=== PATIENT | female | born 1980 | race Caucasian/White ===

== ENCOUNTER 2018-08-15 05:03 | Emergency (ER) | payer BC ==
[2018-08-15] MEDS ORDERED: Sodium Chloride 0.9% 1,000 ML IV ONE (05:12)
[2018-08-15] MEDS ORDERED: Ketorolac 30 MG/ML SDV IVPUSH ONE (05:12)
--- NOTE | 2018-08-15 05:15 | EDM.PDOC ---
ED HPI GENERAL MEDICAL PROBLEM - General Chief Complaint: Abdominal Pain Stated Complaint: SHARP STOMACH PAIN Time Seen by Provider: 08/15/18 05:11 - History of Present Illness INITIAL COMMENTS - FREE TEXT/NARRATIVE: HISTORY AND PHYSICAL: History of present illness: Patient is a 37-year-old white female gentleman Keenan left upper quadrant abdominal pain is described as sharp and intermittent that she's had some diarrhea she denies vomiting denies trauma denies fever chills or other concern. Review of systems: As per history of present illness and below otherwise all systems reviewed and negative. Past medical history: As per history of present illness and as reviewed below otherwise noncontributory. Surgical history: As per history of present illness and as reviewed below otherwise noncontributory. Social history: No reported history of drug or alcohol abuse. Family history: As per history of present illness and as reviewed below otherwise noncontributory. Physical exam: HEENT: Atraumatic, normocephalic, pupils reactive, negative for conjunctival pallor or scleral icterus, mucous membranes moist, throat clear, neck supple, nontender, trachea midline. Lungs: Clear to auscultation, breath sounds equal bilaterally, chest nontender. Heart: S1S2, regular, negative for clicks, rubs, or JVD. Abdomen: Soft, nondistended, no localized tenderness. Negative for masses or hepatosplenomegaly. Negative for costovertebral tenderness. Pelvis: Stable nontender. Genitourinary: Deferred. Rectal: Deferred. Extremities: Atraumatic, negative for cords or calf pain. Neurovascular unremarkable. Neuro: Awake, alert, oriented. Cranial nerves II through XII unremarkable. Cerebellum unremarkable. Motor and sensory unremarkable throughout. Exam nonfocal. Diagnostics: CBC CMP lipase UA hCG acute abdominal series with chest x-ray stool for C&S O&P and C. difficile Therapeutics: Saline 1 L bolus Toradol 30 mg IV Impression: #1 abdominal pain #2 diarrhea Definitive disposition and diagnosis as appropriate pending reevaluation and review of above. - Related Data Allergies Allergy/AdvReac Type Severity Reaction Status Date / Time No Known Allergies Allergy Verified 08/15/18 05:14 Home Meds: Home Meds LORazepam 0.5 mg PO ASDIRECTED 08/15/18 [History] Temazepam [Restoril] 30 mg PO BEDTIME PRN 08/15/18 [History] Venlafaxine HCl [Venlafaxine ER] 225 mg PO DAILY 08/15/18 [History] Venlafaxine [Effexor XR] 37.5 mg PO ASDIRECTED 08/15/18 [History] Past Medical History - Past Health History Medical/Surgical History: Denies Medical/Surgical History Social & Family History - Family History Family Medical History: Noncontributory ED ROS GENERAL - Review of Systems Review Of Systems: ROS reveals no pertinent complaints other than HPI. ED EXAM, GENERAL - Physical Exam Exam: See Below (See dictation) Course - Vital Signs Last Recorded V/S: Last Vital Signs Temp 36.6 C 08/15/18 05:12 Pulse 102 H 08/15/18 05:12 Resp 18 08/15/18 05:12 BP 140/91 H 08/15/18 05:12 Pulse Ox 97 08/15/18 05:12 - Orders/Labs/Meds Orders: Active Orders 24 hr Category Date Time Status Abdomen Series w Chest 1V [CR] Stat Exams 08/15/18 05:12 Taken CDIFF TOX A+B [OP] Stat Lab 08/15/18 05:13 Ordered CULTURE STOOL + CAMPY+SHIGATOX [RM] Stat Lab 08/15/18 05:13 Ordered Labs: Laboratory Tests 08/15/18 08/15/18 08/15/18 Range/Units 05:23 05:23 05:23 WBC 9.91 (4.0-11.0) K/uL RBC 4.92 (4.30-5.90) M/uL Hgb 14.5 (12.0-16.0) g/dL Hct 42.5 (36.0-46.0) % MCV 86.4 (80.0-98.0) fL MCH 29.5 (27.0-32.0) pg MCHC 34.1 (31.0-37.0) g/dL RDW Std Deviation 42.0 (28.0-62.0) fl RDW Coeff of Luba 13 (11.0-15.0) % Plt Count 190 (150-400) K/uL MPV 9.50 (7.40-12.00) fL Neut % (Auto) 69.8 (48.0-80.0) % Lymph % (Auto) 18.6 (16.0-40.0) % Potter % (Auto) 8.7 (0.0-15.0) % Eos % (Auto) 2.8 (0.0-7.0) % Baso % (Auto) 0.1 (0.0-1.5) % Neut # (Auto) 6.9 H (1.4-5.7) K/uL Lymph # (Auto) 1.8 (0.6-2.4) K/uL Potter # (Auto) 0.9 H (0.0-0.8) K/uL Eos # (Auto) 0.3 (0.0-0.7) K/uL Baso # (Auto) 0.0 (0.0-0.1) K/uL Nucleated RBC % 0.0 /100WBC Nucleated RBCs # 0 K/uL Sodium 141 (136-145) mmol/L Potassium 4.1 (3.5-5.1) mmol/L Chloride 105 (98-107) mmol/L Carbon Dioxide 25.6 (21.0-32.0) mmol/L BUN 8 (7.0-18.0) mg/dL Creatinine 0.9 (0.6-1.0) mg/dL Est Cr Clr Drug Dosing 76.26 mL/min Estimated GFR (MDRD) > 60.0 ml/min Glucose 108 H (74-106) mg/dL Calcium 8.7 (8.5-10.1) mg/dL Total Bilirubin 0.7 (0.2-1.0) mg/dL AST 30 (15-37) IU/L ALT 48 (14-63) IU/L Alkaline Phosphatase 110 (46-116) U/L Total Protein 7.3 (6.4-8.2) g/dL Albumin 3.6 (3.4-5.0) g/dL Globulin 3.7 (2.6-4.0) g/dL Albumin/Globulin Ratio 1.0 (0.9-1.6) Lipase 144 (73-393) U/L HCG, Qual NEGATIVE (NEG) Urine Color Urine Appearance Urine pH (5.0-8.0) Ur Specific Madill (1.001-1.035) Urine Protein (NEGATIVE) mg/dL Urine Glucose (UA) (NEGATIVE) mg/dL Urine Ketones (NEGATIVE) mg/dL Urine Occult Blood (NEGATIVE) Urine Nitrite (NEGATIVE) Urine Bilirubin (NEGATIVE) Urine Urobilinogen (<2.0) EU/dL Ur Leukocyte Esterase (NEGATIVE) Urine RBC (0-2/HPF) Urine WBC (0-5/HPF) Ur Epithelial Cells (NONE-FEW) Urine Bacteria (NEGATIVE) 08/15/18 Range/Units 05:30 WBC (4.0-11.0) K/uL RBC (4.30-5.90) M/uL Hgb (12.0-16.0) g/dL Hct (36.0-46.0) % MCV (80.0-98.0) fL MCH (27.0-32.0) pg MCHC (31.0-37.0) g/dL RDW Std Deviation (28.0-62.0) fl RDW Coeff of Luba (11.0-15.0) % Plt Count (150-400) K/uL MPV (7.40-12.00) fL Neut % (Auto) (48.0-80.0) % Lymph % (Auto) (16.0-40.0) % Potter % (Auto) (0.0-15.0) % Eos % (Auto) (0.0-7.0) % Baso % (Auto) (0.0-1.5) % Neut # (Auto) (1.4-5.7) K/uL Lymph # (Auto) (0.6-2.4) K/uL Potter # (Auto) (0.0-0.8) K/uL Eos # (Auto) (0.0-0.7) K/uL Baso # (Auto) (0.0-0.1) K/uL Nucleated RBC % /100WBC Nucleated RBCs # K/uL Sodium (136-145) mmol/L Potassium (3.5-5.1) mmol/L Chloride (98-107) mmol/L Carbon Dioxide (21.0-32.0) mmol/L BUN (7.0-18.0) mg/dL Creatinine (0.6-1.0) mg/dL Est Cr Clr Drug Dosing mL/min Estimated GFR (MDRD) ml/min Glucose (74-106) mg/dL Calcium (8.5-10.1) mg/dL Total Bilirubin (0.2-1.0) mg/dL AST (15-37) IU/L ALT (14-63) IU/L Alkaline Phosphatase (46-116) U/L Total Protein (6.4-8.2) g/dL Albumin (3.4-5.0) g/dL Globulin (2.6-4.0) g/dL Albumin/Globulin Ratio (0.9-1.6) Lipase (73-393) U/L HCG, Qual (NEG) Urine Color YELLOW Urine Appearance HAZY Urine pH 6.0 (5.0-8.0) Ur Specific Madill 1.015 (1.001-1.035) Urine Protein NEGATIVE (NEGATIVE) mg/dL Urine Glucose (UA) NEGATIVE (NEGATIVE) mg/dL Urine Ketones NEGATIVE (NEGATIVE) mg/dL Urine Occult Blood SMALL H (NEGATIVE) Urine Nitrite NEGATIVE (NEGATIVE) Urine Bilirubin NEGATIVE (NEGATIVE) Urine Urobilinogen 0.2 (<2.0) EU/dL Ur Leukocyte Esterase NEGATIVE (NEGATIVE) Urine RBC 1-2 (0-2/HPF) Urine WBC 0-2 (0-5/HPF) Ur Epithelial Cells FEW (NONE-FEW) Urine Bacteria FEW (NEGATIVE) Meds: Medications Discontinued Medications Generic Name Dose Route Start Last Admin Trade Name Freq PRN Reason Stop Dose Admin Sodium Chloride 1,000 mls @ 999 mls/hr 08/15/18 05:12 08/15/18 05:40 Normal Saline IV 08/15/18 06:12 999 mls/hr STAT ONE Administration Ketorolac Tromethamine 30 mg 08/15/18 05:12 08/15/18 05:40 Toradol IVPUSH 08/15/18 05:13 30 mg ONETIME ONE Administration Departure - Departure Time of Disposition: 06:19 Disposition: Home, Self-Care 01 Condition: Good Clinical Impression: Abdominal pain, Diarrhea - Discharge Information Referrals: PCP,None [Primary Care Provider] - Forms: ED Department Discharge Additional Instructions: The following information is given to patients seen in the emergency department who are being discharged to home. This information is to outline your options for follow-up care. We provide all patients seen in our emergency department with a follow-up referral. The need for follow-up, as well as the timing and circumstances, are variable depending upon the specifics of your emergency department visit. If you don't have a primary care physician on staff, we will provide you with a referral. We always advise you to contact your personal physician following an emergency department visit to inform them of the circumstance of the visit and for follow-up with them and/or the need for any referrals to a consulting specialist. The emergency department will also refer you to a specialist when appropriate. This referral assures that you have the opportunity for followup care with a specialist. All of these measure are taken in an effort to provide you with optimal care, which includes your followup. Under all circumstances we always encourage you to contact your private physician who remains a resource for coordinating your care. When calling for followup care, please make the office aware that this follow-up is from your recent emergency room visit. If for any reason you are refused follow-up, please contact the [facility] emergency department at and asked to speak to the emergency department charge nurse. Continue current medications follow up primary medical doctor as needed as discussed and return as needed as discussed push clear liquids avoid dairy 72 hours - My Orders Last 24 Hours: My Active Orders 08/15/18 05:12 Abdomen Series w Chest 1V [CR] Stat 08/15/18 05:13 CDIFF TOX A+B [OP] Stat CULTURE STOOL + CAMPY+SHIGATOX [RM] Stat - Assessment/Plan Last 24 Hours: My Active Orders 08/15/18 05:12 Abdomen Series w Chest 1V [CR] Stat 08/15/18 05:13 CDIFF TOX A+B [OP] Stat CULTURE STOOL + CAMPY+SHIGATOX [RM] Stat
[2018-08-15 06:01] LABS: CHLORIDE,CL 105 mmol/L (98-107); SODIUM,NA 141 mmol/L (136-145)
[2018-08-15 07:04] VITALS: BP 117/64
--- NOTE | 2018-08-16 12:33 | CR ---
EXAM DATE: 08/15/18 PATIENT'S AGE: 37 Patient: JUVENCIO CRUZ Facility: [facility] Site . Site : [id number] Study: XRay-Chest/Abd-08/15/2018 6:17:44 AM Ordering Physician: Echo Felipe Final Report: INDICATION: Abdominal pain TECHNIQUE: Chest and Abdominal radiograph 4 views COMPARISON: None FINDINGS: Severe degradation of image quality noted due to body habitus. CHEST: Mediastinum: The mediastinum is normal in appearance. The heart silhouette is normal in size and morphology. Lung: Both lungs are unremarkable in appearance. No sign of pleural effusion seen. No pneumothorax is identified. ABDOMEN: Bowel: The bowel gas pattern is normal without evidence of bowel obstruction. Soft tissue: No evidence of pneumoperitoneum present. No suspicious calcifications noted. Bone: Unremarkable for age. IMPRESSION: 1. Unremarkable appearance of the chest and abdomen. 2. Severe degradation of image quality noted due to body habitus. Dictated by: Jabari Forrest MD @ 08/15/2018 06:23:51 Signed by: Jabari Forrest MD @08/15/2018 6:23:51 AM (Electronic Signature) Report Signed by Proxy. MEDISYS HEALTH NETWORKIrvin
== END 2018-08-15 07:15 | disposition home or self-care (01) ==
LOC: MW.ED 05:03
DX: R19.7 Diarrhea, unspecified (principal); R10.12 Left upper quadrant pain; Z79.899 Other long term (current) drug therapy
CPT/HCPCS: 36415; 74022; 80053; 81001; 83690; 84703; 85025; 96361; 96374; 99284; J1885; J7040

== ENCOUNTER 2021-03-12 12:10 | Day surgery (SDC) | payer BC ==
--- NOTE | 2021-03-12 11:15 | PCM.PREANE ---
Preanesthetic Assessment - Anesthesia/Transfusion/Family Hx Anesthesia History: Prior Anesthesia Without Reaction Transfusion History: No Prior Transfusion(s) - Review of Systems General: No Symptoms Pulmonary: No Symptoms Cardiovascular: No Symptoms Gastrointestinal: No Symptoms Neurological: No Symptoms Other: Reports: None - Physical Assessment NPO Status Date: 03/12/21 NPO Status Time: 00:00 Height: 5 ft 5 in Weight: 256 lb Mental Status: Alert & Oriented x3 Airway Class: Mallampati = 2 Dentition: Reports: Normal Dentition Thyro-Mental Finger Breadths: 3 Mouth Opening Finger Breadths: 3 ROM/Head Extension: Full Lungs: Clear to Auscultation, Normal Respiratory Effort Cardiovascular: Regular Rate, Regular Rhythm - Allergies Allergies/Adverse Reactions: Allergies Allergy/AdvReac Type Severity Reaction Status Date / Time No Known Allergies Allergy Verified 03/06/21 08:13 - Acknowledgements Anesthesia Type Planned: General Anesthesia Pt an Appropriate Candidate for the Planned Anesthesia: Yes Alternatives and Risks of Anesthesia Discussed w Pt/Guardian: Yes Pt/Guardian Understands and Agrees with Anesthesia Plan: Yes PreAnesthesia Questionnaire - Past Health History Medical/Surgical History: Denies Medical/Surgical History HEENT History: Reports: None Cardiovascular History: Reports: None Respiratory History: Reports: None Gastrointestinal History: Reports: Cholelithiasis, Chronic Diarrhea, GERD, Helicobacter Pylori Other Gastrointestinal History: intermittent RUQ pain Genitourinary History: Reports: None JACK PRIZER History: Reports: , Spontaneous Musculoskeletal History: Reports: Fracture Other Musculoskeletal History: fx big toe Neurological History: Reports: Headaches, Chronic Psychiatric History: Reports: Anxiety, Depression Endocrine/Metabolic History: Reports: Obesity/BMI 30+ Hematologic History: Reports: None Immunologic History: Reports: None Oncologic (Cancer) History: Reports: None Dermatologic History: Reports: None - Infectious Disease History Infectious Disease History: Reports: None - Past Surgical History Head Surgeries/Procedures: Reports: None HEENT Surgical History: Reports: Oral Surgery Cardiovascular Surgical History: Reports: None Respiratory Surgical History: Reports: None GI Surgical History: Reports: None Female Surgical History: Reports: None Endocrine Surgical History: Reports: None Neurological Surgical History: Reports: None Musculoskeletal Surgical History: Reports: None Oncologic Surgical History: Reports: None Dermatological Surgical History: Reports: None - SUBSTANCE USE Tobacco Use Status *Q: Current Every Day Tobacco User Tobacco Use Within Last Twelve Months: Cigarettes - HOME MEDS Home Medications: Home Meds LORazepam 1 mg PO ASDIRECTED PRN 08/15/18 [History] Temazepam [Restoril] 30 mg PO BEDTIME PRN 08/15/18 [History] Amoxicillin 1,000 mg PO BID 03/06/21 [History] Clarithromycin 500 mg PO BID 03/06/21 [History] Methylmethyl-Guard Plus 1 tab PO DAILY 03/06/21 [History] Multivitamin/Iron/Folic Acid [Centrum Adults Tablet] 1 tab PO DAILY 03/06/21 [History] Omeprazole 40 mg PO BID 03/06/21 [History] Sertraline HCl 100 mg PO BID 03/06/21 [History] buPROPion HCL [Bupropion Xl] 300 mg PO DAILY 03/06/21 [History] hydrOXYzine HCL [Hydroxyzine HCl] 3 tab PO BEDTIME 03/06/21 [History] - CURRENT (IN HOUSE) MEDS Current Meds: Current Medications Lactated Ringer's (Ringers, Lactated) 1,000 mls @ 125 mls/hr IV ASDIRECTED BRIAN Sodium Chloride (Sodium Chloride 0.9% 10 Ml Syringe) 10 ml FLUSH ASDIRECTED PRN PRN Reason: Keep Vein Open Sodium Chloride (Sodium Chloride 0.9% 2.5 Ml Syringe) 2.5 ml FLUSH ASDIRECTED PRN PRN Reason: Keep Vein Open Sodium Chloride (Sodium Chloride 0.9% 10 Ml Syringe) 10 ml FLUSH ASDIRECTED PRN PRN Reason: Keep Vein Open Sodium Chloride (Sodium Chloride 0.9% 2.5 Ml Syringe) 2.5 ml FLUSH ASDIRECTED PRN PRN Reason: Keep Vein Open Sodium Chloride (Sodium Chloride 0.9% 10 Ml Sdv) 10 ml IV ASDIRECTED PRN PRN Reason: IV Use
[~2021-03-12 12:10] MED LIST: Lactated Ringers 1,000 ML IV SCH; Sodium Chloride 0.9% 10 ML SDV IV PRN; Sodium Chloride 0.9% 10 ML Syringe FLUSH PRN; Sodium Chloride 0.9% 2.5 ML Syringe FLUSH PRN
[2021-03-12] MEDS ORDERED: Ondansetron 4 MG/2 ML SDV ONE (13:13)
[2021-03-12] MEDS ORDERED: fentaNYL 100 MCG/2 ML SDV ONE (13:13)
--- NOTE | 2021-03-12 15:12 | PCM48HPAN ---
Post Anesthesia Note - EVALUATION WITHIN 48HRS OF ANESTHETIC Vital Signs in Normal Range: Yes Patient Participated in Evaluation: Yes Respiratory Function Stable: Yes Airway Patent: Yes Cardiovascular Function Stable: Yes Hydration Status Stable: Yes Pain Control Satisfactory: Yes Nausea and Vomiting Control Satisfactory: Yes Mental Status Recovered: Yes Vital Signs: Last Vital Signs Temp 97.2 F 03/12/21 12:13 Pulse 88 03/12/21 12:13 Resp 16 03/12/21 12:13 BP 144/89 H 03/12/21 12:13 Pulse Ox 96 03/12/21 12:13
--- NOTE | 2021-03-12 15:12 | PCM.POSTAN ---
POST ANESTHESIA ASSESSMENT - MENTAL STATUS Mental Status: Somnolent - VITAL SIGNS Vital Signs: Last Vital Signs Temp 97.2 F 03/12/21 12:13 Pulse 88 03/12/21 12:13 Resp 16 03/12/21 12:13 BP 144/89 H 03/12/21 12:13 Pulse Ox 96 03/12/21 12:13 - RESPIRATORY Respiratory Status: Respiratory Rate WNL, Airway Patent, O2 Saturation Stable - CARDIOVASCULAR CV Status: Pulse Rate WNL, Blood Pressure Stable - GASTROINTESTINAL GI Status: No Symptoms - POST OP HYDRATION Hydration Status: Adequate & Stable
[2021-03-12 15:37] VITALS: BP 132/76; PULSE 63
--- NOTE | 2021-03-12 18:22 | PCM.OPNOTE ---
- General Post-Op/Procedure Note Date of Surgery/Procedure: 03/12/21 Operative Procedure(s): Diagnostic EGD and colonoscopy Findings: anal warts, rectal polyps x 3, normal appearing egd Pre Op Diagnosis: H. pylori infection, abdominal pain, change in bowel habits Post-Op Diagnosis: anal warts, rectal polyps x 3, Anesthesia Technique: MAC Primary Surgeon: Nuvia Mendoza Condition: Good Free Text/Narrative:: Intake & Output 03/12/21 03/12/21 03/12/21 06:59 14:59 22:59 Intake Total 1500 Balance 1500
--- NOTE | 2021-03-12 23:03 | OR ---
SURGEON: NUVIA MENDOZA MD DATE OF PROCEDURE: 03/12/2021 PREOPERATIVE DIAGNOSES: Helicobacter pylori infection, abdominal pain, change in bowel habits. POSTOPERATIVE DIAGNOSES: 1. Helicobacter pylori infection. 2. Rectal polyps x3. 3. Anal warts. PROCEDURE PERFORMED: Diagnostic esophagogastroduodenoscopy and colonoscopy. PRIMARY SURGEON: Nuvia Mendoza MD ANESTHESIA: MAC. INSTRUMENT USED: Olympus endoscope and colonoscope. EXTENT OF EXAM: To the second portion of duodenum, to the cecum. PREPARATION: Good. LIMITATIONS: None. INDICATIONS FOR EXAMINATION: The patient is a 40-year-old female who came to my office with a variety of abdominal complaints. She was having abdominal pain as well as a change in her bowel habits. She was diagnosed with H pylori and started on a regimen. The patient was consented for diagnostic EGD and colonoscopy. I explained the procedure, expected perioperative course, and the risks. She verbalized understanding and wishes to proceed. PROCEDURE IN DETAIL: The patient was brought in to the endoscopy suite and placed in a left lateral decubitus position. A time-out was completed verifying the patient's name, age, date of , allergies, and procedure to be performed. A bite block was placed in the patient's mouth. Monitored anesthesia care was induced and continuous oxygen was provided via face mask throughout the procedure. After adequate sedation was achieved, a well-lubricated endoscope was placed in the patient's mouth and advanced under direct visualization to the level of the second portion of duodenum. This appeared normal and a photograph was taken. The scope was then fully withdrawn while examining the color, texture, anatomy, and integrity of the mucosa of the upper GI tract. The duodenum appeared normal. The scope was brought into the stomach and a photograph was taken of the pylorus and GE junction. These appeared anatomically normal. There was no evidence of gross inflammation or ulceration. Biopsies were taken of the gastric antrum, body, and fundus and sent for histologic review and H pylori testing. The scope was then brought into the distal esophagus and a photograph was taken of the GE junction. The Z-line appeared normal. Biopsies were taken of the esophagus and sent 1 cm above the Z-line and sent to Pathology. The remainder of the esophagus appeared normal. The scope was removed and this portion of the procedure terminated. A digital rectal exam was performed. The patient was noted to have multiple anal warts. A photograph of this was taken. The digital rectal exam itself appeared normal. A well-lubricated colonoscope was inserted into the rectum and advanced under direct visualization to the level of the cecum. The cecum was identified by both visual and anatomic landmarks. A photograph was taken of the cecal cap, however, I was unable to retroflex the scope within the cecum. The scope was then fully withdrawn while examining the color, texture, anatomy, and integrity of the mucosa from the cecum to the anal canal. The patient's colon appeared normal, however, when I brought the scope into the rectum, there were three sessile polyps. Rectal polyp #1 was removed using a hot snare. Rectal polyp #2 and #3 were removed in piecemeal fashion using a cold biopsy forceps. The scope was retroflexed to allow visualization of the anal canal opening. This appeared normal and a photograph was taken. The scope was then straightened out and fully withdrawn. The cecum to anus time was 20 minutes. The patient tolerated the procedure well and was transferred to the PACU in stable condition. ENDOSCOPIC DIAGNOSES: 1. Helicobacter pylori infection. 2. Rectal polyps x3. 3. Anal warts. RECOMMENDATION: Follow up in clinic in two weeks. BALJINDER GAITAN /[id number]
== END 2021-03-12 15:52 | disposition home or self-care (01) ==
LOC: MW.SDS 12:10
PROVIDERS: ATTEND Surgery
DX: K62.1 Rectal polyp (principal); A63.0 Anogenital (venereal) warts; K21.00 Gastro-esophageal reflux disease with esophagitis, without bleeding; F41.9 Anxiety disorder, unspecified; F32.A Depression, unspecified; F17.210 Nicotine dependence, cigarettes, uncomplicated; K80.20 Calculus of gallbladder without cholecystitis without obstruction; E66.9 Obesity, unspecified; Z79.899 Other long term (current) drug therapy; Z98.890 Other specified postprocedural states; Z68.41 Body mass index [BMI] 40.0-44.9, adult
CPT/HCPCS: 43239; 45380; 45385; 81025; 88305; 88342; J2405; J2704; J3010; J7120; 00813

== ENCOUNTER 2021-03-19 07:51 | Day surgery (SDC) | payer BC ==
[~2021-03-19 07:51] MED LIST changes: +Lidocaine 2% 5 ML SDV ONE; +Propofol 200 MG/20 ML SDV ONE; +ceFAZolin 2 GM in Premix Bag 1 BAG IV ONE; +fentaNYL 100 MCG/2 ML SDV ONE
[2021-03-19] MEDS ORDERED: Midazolam 1 MG/ML 2 ML SDV ONE ×2 (08:33→09:45)
[2021-03-19] MEDS ORDERED: fentaNYL 100 MCG/2 ML SDV ONE ×3 (08:33→11:49)
[2021-03-19] MEDS ORDERED: Propofol 200 MG/20 ML SDV ONE ×2 (08:33→09:41)
[2021-03-19] MEDS ORDERED: Lidocaine 2% 5 ML SDV ONE (08:33)
--- NOTE | 2021-03-19 08:38 | PCM.PREANE ---
Preanesthetic Assessment - Procedure Proposed Procedure: Lap [place] - Anesthesia/Transfusion/Family Hx Anesthesia History: Prior Anesthesia Without Reaction Family History of Anesthesia Reaction: No Transfusion History: No Prior Transfusion(s) - Review of Systems General: No Symptoms Pulmonary: No Symptoms (Smokes 1 PPD) Cardiovascular: No Symptoms Gastrointestinal: No Symptoms (GERD well controlled on prilosec) Neurological: No Symptoms Other: Reports: None - Physical Assessment NPO Status Date: 03/18/21 NPO Status Time: 20:00 Height: 5 ft 5 in Weight: 116.12 kg ASA Class: 3 Mental Status: Alert & Oriented x3 Airway Class: Mallampati = 3 Dentition: Reports: Normal Dentition Thyro-Mental Finger Breadths: 3 Mouth Opening Finger Breadths: 3 ROM/Head Extension: Full Lungs: Clear to Auscultation, Normal Respiratory Effort Cardiovascular: Regular Rate, Regular Rhythm - Allergies Allergies/Adverse Reactions: Allergies Allergy/AdvReac Type Severity Reaction Status Date / Time No Known Allergies Allergy Verified 03/13/21 07:07 - Acknowledgements Anesthesia Type Planned: General Anesthesia Pt an Appropriate Candidate for the Planned Anesthesia: Yes Alternatives and Risks of Anesthesia Discussed w Pt/Guardian: Yes Pt/Guardian Understands and Agrees with Anesthesia Plan: Yes PreAnesthesia Questionnaire - Past Health History Medical/Surgical History: Denies Medical/Surgical History HEENT History: Reports: None Cardiovascular History: Reports: None Respiratory History: Reports: None Gastrointestinal History: Reports: Cholelithiasis, Chronic Diarrhea, GERD, Helicobacter Pylori Other Gastrointestinal History: intermittent RUQ pain Genitourinary History: Reports: None 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: , Spontaneous Musculoskeletal History: Reports: Fracture Other Musculoskeletal History: fx big toe Neurological History: Reports: Headaches, Chronic Psychiatric History: Reports: Anxiety, Depression Endocrine/Metabolic History: Reports: Obesity/BMI 30+ Hematologic History: Reports: None Immunologic History: Reports: None Oncologic (Cancer) History: Reports: None Dermatologic History: Reports: None - Infectious Disease History Infectious Disease History: Reports: None - Past Surgical History Cardiovascular Surgical History: Reports: None Respiratory Surgical History: Reports: None GI Surgical History: Reports: None Female Surgical History: Reports: None Endocrine Surgical History: Reports: None Neurological Surgical History: Reports: None Musculoskeletal Surgical History: Reports: None Oncologic Surgical History: Reports: None Dermatological Surgical History: Reports: None - SUBSTANCE USE Tobacco Use Status *Q: Current Every Day Tobacco User Tobacco Use Within Last Twelve Months: Cigarettes - HOME MEDS Home Medications: Home Meds LORazepam 1 mg PO ASDIRECTED PRN 08/15/18 [History] Temazepam [Restoril] 30 mg PO BEDTIME PRN 08/15/18 [History] Methylmethyl-Guard Plus 1 tab PO DAILY 03/06/21 [History] Multivitamin/Iron/Folic Acid [Centrum Adults Tablet] 1 tab PO DAILY 03/06/21 [History] Omeprazole 40 mg PO BID 03/06/21 [History] Sertraline HCl 100 mg PO BID 03/06/21 [History] buPROPion HCL [Bupropion Xl] 300 mg PO DAILY 03/06/21 [History] hydrOXYzine HCL [Hydroxyzine HCl] 3 tab PO BEDTIME 03/06/21 [History] Amoxicillin 500 mg PO BID 03/13/21 [History] Clarithromycin 500 mg PO BID 03/13/21 [History] Scopolamine 1 patch TRDERM ONETIME 03/13/21 [History] - CURRENT (IN HOUSE) MEDS Current Meds: Current Medications Lactated Ringer's (Ringers, Lactated) 1,000 mls @ 125 mls/hr IV ASDIRECTED BRIAN Sodium Chloride (Sodium Chloride 0.9% 10 Ml Syringe) 10 ml FLUSH ASDIRECTED PRN PRN Reason: Keep Vein Open Sodium Chloride (Sodium Chloride 0.9% 2.5 Ml Syringe) 2.5 ml FLUSH ASDIRECTED PRN PRN Reason: Keep Vein Open Sodium Chloride (Sodium Chloride 0.9% 10 Ml Sdv) 10 ml IV ASDIRECTED PRN PRN Reason: IV Use Discontinued Medications Fentanyl (Fentanyl 100 Mcg/2 Ml Sdv) Confirm Administered Dose 100 mcg .ROUTE .STK-MED ONE Stop: 03/12/21 14:14 Cefazolin Sodium/Dextrose 2 gm (/ Premix) 50 mls @ 100 mls/hr IV ONETIME ONE Stop: 03/18/21 11:23 Lidocaine (Lidocaine 2% 5 Ml Sdv) Confirm Administered Dose 5 ml .ROUTE .STK-MED ONE Stop: 03/12/21 14:13 Propofol (Propofol 200 Mg/20 Ml Sdv) Confirm Administered Dose 800 mg .ROUTE .STK-MED ONE Stop: 03/12/21 14:14
[2021-03-19] MEDS ORDERED: Morphine 2 MG/ML SYRINGE IVPUSH PRN (08:40)
[2021-03-19] MEDS ORDERED: Metoclopramide 10 MG/2 ML SDV IVPUSH PRN (08:40)
[2021-03-19] MEDS ORDERED: Ondansetron 4 MG/2 ML SDV IVPUSH PRN (08:40)
[2021-03-19] MEDS ORDERED: HYDROmorphone 1 MG/ML Syringe IVPUSH PRN (08:40)
[2021-03-19] MEDS ORDERED: Naloxone 0.4 MG/ML SDV IVPUSH PRN (08:40)
[2021-03-19] MEDS ORDERED: Albuterol 0.083% 2.5 MG/3 ML Neb Soln NEB PRN (08:40)
[2021-03-19] MEDS ORDERED: fentaNYL 100 MCG/2 ML SDV IVPUSH PRN (08:40)
[2021-03-19] MEDS ORDERED: Bupivacaine 0.5% 30 ML SDV ONE (09:30)
[2021-03-19] MEDS ORDERED: Dexmedetomidine 200 MCG/2 ML SDV ONE (09:41)
[2021-03-19] MEDS ORDERED: Rocuronium Bromide 50 MG/5 ML Syringe ONE ×2 (09:41→11:47)
[2021-03-19] MEDS ORDERED: Sodium Chloride 0.9% 20 ML ONE (09:43)
[2021-03-19] MEDS ORDERED: Dexamethasone 4 MG/ML 5 ML MDV ONE (10:49)
[2021-03-19] MEDS ORDERED: Ondansetron 4 MG/2 ML SDV ONE (11:01)
[2021-03-19] MEDS ORDERED: Ketorolac 30 MG/ML SDV ONE (11:02)
[2021-03-19] MEDS ORDERED: Sugammadex Sodium 200 MG/2 ML VIAL ONE (11:02)
[2021-03-19] MEDS ORDERED: Octyl 2-Cyanoacrylate 1 Tube ONE (12:23)
--- NOTE | 2021-03-19 13:08 | PCM.POSTAN ---
POST ANESTHESIA ASSESSMENT - MENTAL STATUS Mental Status: Somnolent - VITAL SIGNS Vital Signs: Last Vital Signs Temp 96.8 F L 03/19/21 08:39 Pulse 76 03/19/21 08:39 Resp 16 03/19/21 08:39 BP 120/57 L 03/19/21 08:39 Pulse Ox 98 03/19/21 08:39 - RESPIRATORY Respiratory Status: Respiratory Rate WNL, Airway Patent, O2 Saturation Stable - CARDIOVASCULAR CV Status: Pulse Rate WNL, Blood Pressure Stable - GASTROINTESTINAL GI Status: No Symptoms - PAIN Free Text/Narrative:: Resting Comfortably - POST OP HYDRATION Hydration Status: Adequate & Stable
--- NOTE | 2021-03-19 13:41 | PCM48HPAN ---
Post Anesthesia Note - EVALUATION WITHIN 48HRS OF ANESTHETIC Vital Signs in Normal Range: Yes Patient Participated in Evaluation: Yes Respiratory Function Stable: Yes Airway Patent: Yes Cardiovascular Function Stable: Yes Hydration Status Stable: Yes Pain Control Satisfactory: Yes Nausea and Vomiting Control Satisfactory: Yes Mental Status Recovered: Yes Vital Signs: Last Vital Signs Temp 99.5 F 03/19/21 12:45 Pulse 73 03/19/21 13:30 Resp 18 03/19/21 13:30 BP 113/70 03/19/21 13:30 Pulse Ox 95 03/19/21 13:30 - COMMENTS/OBSERVATIONS Free Text/Narrative:: Pt doing well post-op. VSS. No apparent anesthetic complications. Dr. Eloy Broussard
[2021-03-19 14:18] VITALS: PULSE 78
[2021-03-19 14:22] VITALS: BP 124/70
--- NOTE | 2021-03-19 15:23 | PCM.OPNOTE ---
- General Post-Op/Procedure Note Date of Surgery/Procedure: 03/19/21 Operative Procedure(s): Laparoscopic cholecystectomy Findings: Acute on chronic cholecystitis with gallbladder hydrops. Pre Op Diagnosis: Symptomatic cholelithiasis Post-Op Diagnosis: Acute on chronic cholecystitis Anesthesia Technique: General ET Tube Primary Surgeon: Nuvia Mendoza Fluid Replacement, Intraop: 1,300 EBL in mLs: 10 Condition: Good Free Text/Narrative:: Intake & Output 03/19/21 03/19/21 03/19/21 06:59 14:59 22:59 Intake Total 1450 Output Total 20 Balance 1430
--- NOTE | 2021-03-20 18:00 | OR ---
SURGEON: NUVIA MENDOZA MD DATE OF PROCEDURE: 03/19/2021 PREOPERATIVE DIAGNOSIS: Symptomatic cholelithiasis. POSTOPERATIVE DIAGNOSIS: Acute on chronic cholecystitis. PROCEDURE PERFORMED: Laparoscopic cholecystectomy. PRIMARY SURGEON: Nuvia Mendoza MD ANESTHESIA: General endotracheal anesthesia. FLUIDS: 1300 mL of crystalloid. ESTIMATED BLOOD LOSS: 10 mL. FINDINGS: Multiple adhesions of the omentum to the gallbladder and surrounding liver capsule. Thickened and inflamed gallbladder. The gallbladder contained hydropic bile. COMPLICATIONS: None. INDICATIONS: The patient is a 40-year-old female who presented to my clinic with symptomatic cholelithiasis. I explained the need for a laparoscopic, possible open cholecystectomy. I explained the procedure, expected perioperative course, and the risks. She verbalized understanding and wishes to proceed. PROCEDURE IN DETAIL: The patient was brought in to the OR and placed on the OR table in supine position. A time-out was completed verifying the patient's name, age, date of , allergies, and procedure to be performed. General endotracheal anesthesia was induced. The left arm was tucked to the patient's side and a straight cath was performed. The abdomen was prepped and draped in the usual standard fashion. I anesthetized the supraumbilical midline with 0.5% Marcaine plain. An 11-blade was used to make an incision along this area. I dissected bluntly down to the fascia. The fascia was then elevated with Kochers and incised sharply with curved Lindsey scissors. I grasped the peritoneum with hemostats and incised this sharply as well. Entry into the abdomen was palpated digitally. A 12 mm Christiano trocar was placed into the abdomen and it was insufflated. A 5 mm 30-degree scope was inserted. I inspected the area underneath my initial trocar placement. No damage to surrounding structures was noted. The patient was placed into reverse Trendelenburg position and airplaned slightly to the left. 5 mm trocars were placed in the following locations under direct visualization; one in the epigastric area, one in the right flank, and one 2 fingerbreadths below the right subcostal margin in the midclavicular line. I turned my attention to the right upper quadrant. I could not identify the gallbladder. There was omentum that was adhesed along the liver edge and surrounding the gallbladder itself. Using suction as well as hook cautery, I took down all of the attachments of the omentum around the liver edge. After doing this, I could see the top of the gallbladder. This was grasped with an atraumatic grasper through the right flank port. I then continued to take down the dense omental adhesions around the gallbladder itself. Once these were completely cleared away, I then elevated the gallbladder more superiorly. The gallbladder itself was very thick and dense. The patient had been given indocyanine green at the beginning of the case. Imaging was used to identify both the cystic duct as well as common bile duct. A photograph of this was taken. I began my dissection of the surrounding tissue along the mid body of the gallbladder wall. Using a combination of blunt dissection and hook cautery, I took down the attachments of the gallbladder to the surrounding liver and carried my dissection more proximal. I was able to clear away all of the tissue around the cystic duct. This was thickened and inflamed and I could feel a stone in the neck of the gallbladder itself. I began to clear away the tissue between the cystic duct and the cystic plate. I identified the node of Calot. This was swept down. There was some vascular tissue behind this. I cleared this away. I continued my dissection up the cystic plate. Eventually, I was able to identify the cystic artery. The initial tissue behind my node of Calot appeared to be a small branch off the main cystic artery. This was doubly clipped and ligated. This allowed me to complete my critical view. A photograph of this was taken. I then doubly clipped and ligated my cystic artery. The cystic duct was too thick to clip with 5 mm clips. I upsized my 5 mm epigastric port to a 12 mm port. An endoscopic stapling device was then brought into the field. I stapled and transected across the proximal gallbladder just above the takeoff of the cystic duct with a 45 mm purple load of spike. I then began my dissection of the gallbladder off the remainder of the cystic duct. I entered the gallbladder. I suctioned out a large amount of mucoid white appearing bile. This was consistent with hydrops. The gallbladder was able to be removed safely from the cystic plate. It was placed in an EndoCatch bag and removed through the epigastric 12 mm port site. I then copiously irrigated the right upper quadrant and suctioned this out. I inspected my operative field. There was no evidence of bile leakage and the area was hemostatic. The 12 mm epigastric trocar was removed and I closed the fascia at this site with an interrupted 0 Vicryl suture using a Duane-Brenda device. The 5 mm trocars were then removed as well and the abdomen allowed to desufflate. The 12 mm Christiano trocar was removed. The fascia at the supraumbilical port site was closed with interrupted 0 Vicryl sutures. The subcutaneous fat was closed with interrupted 3-0 Vicryl sutures. The skin was closed with a running 4-0 Monocryl stitch. At my epigastric port site, I closed the subcutaneous fat with interrupted 3-0 Vicryl sutures in the subcutaneous fat layer. I closed the skin with a running 4-0 Monocryl stitch. The subcostal incision was closed with a running 4-0 Monocryl stitch as well. The right flank port was closed with interrupted 4-0 Monocryl suture. Dermabond and sterile dressings were applied. The patient tolerated the procedure well, was extubated, and taken to PACU in stable condition. All counts were complete and correct at the end of the case. BALJINDER / KANDY /[id number]
== END 2021-03-19 15:07 | disposition home or self-care (01) ==
LOC: MW.SDS 07:51
PROVIDERS: ATTEND Surgery
DX: K81.2 Acute cholecystitis with chronic cholecystitis (principal); F17.210 Nicotine dependence, cigarettes, uncomplicated; E66.9 Obesity, unspecified; F32.9 Major depressive disorder, single episode, unspecified; Z79.899 Other long term (current) drug therapy; Z98.890 Other specified postprocedural states
CPT/HCPCS: 47562; 81025; A9270; J0131; J1100; J1885; J2250; J2405; J2704; J3010; J3490; J7120; 00790

== ENCOUNTER 2021-04-30 12:11 | Day surgery (SDC) | payer BC ==
[~2021-04-30 12:11] MED LIST changes: -Lidocaine 2% 5 ML SDV ONE; +Midazolam 1 MG/ML 2 ML SDV ONE; -Sodium Chloride 0.9% 10 ML SDV IV PRN; +Sodium Chloride 0.9% 20 ML SDV IV PRN; -ceFAZolin 2 GM in Premix Bag 1 BAG IV ONE; +cefOXitin 2 GM in Premix Bag 1 BAG IV ONE; -fentaNYL 100 MCG/2 ML SDV ONE
[2021-04-30] MEDS ORDERED: Albuterol 0.083% 2.5 MG/3 ML Neb Soln NEB PRN (12:53)
[2021-04-30] MEDS ORDERED: HYDROmorphone 1 MG/ML Syringe IVPUSH PRN (12:53)
[2021-04-30] MEDS ORDERED: fentaNYL 100 MCG/2 ML SDV IVPUSH PRN (12:53)
[2021-04-30] MEDS ORDERED: Metoclopramide 10 MG/2 ML SDV IVPUSH PRN (12:53)
[2021-04-30] MEDS ORDERED: Ondansetron 4 MG/2 ML SDV IVPUSH PRN (12:53)
[2021-04-30] MEDS ORDERED: Naloxone 0.4 MG/ML SDV IVPUSH PRN (12:53)
--- NOTE | 2021-04-30 12:57 | PCM.PREANE ---
Preanesthetic Assessment - Procedure Proposed Procedure: Excision of anogenital warts - Anesthesia/Transfusion/Family Hx Anesthesia History: Prior Anesthesia Without Reaction Family History of Anesthesia Reaction: No Transfusion History: No Prior Transfusion(s) - Review of Systems General: No Symptoms Pulmonary: No Symptoms (Amokes 1 PPD) Cardiovascular: No Symptoms Gastrointestinal: No Symptoms (GERD well controlled) Neurological: No Symptoms Other: Reports: None - Physical Assessment NPO Status Date: 04/29/21 NPO Status Time: 22:00 Height: 5 ft 5 in Weight: 117.934 kg (Morbid obesity) ASA Class: 3 Mental Status: Alert & Oriented x3 Airway Class: Mallampati = 3 Dentition: Reports: Normal Dentition Thyro-Mental Finger Breadths: 3 Mouth Opening Finger Breadths: 3 ROM/Head Extension: Full Lungs: Clear to Auscultation, Normal Respiratory Effort Cardiovascular: Regular Rate, Regular Rhythm - Allergies Allergies/Adverse Reactions: Allergies Allergy/AdvReac Type Severity Reaction Status Date / Time No Known Allergies Allergy Verified 04/24/21 13:40 - Acknowledgements Anesthesia Type Planned: General Anesthesia Pt an Appropriate Candidate for the Planned Anesthesia: Yes Alternatives and Risks of Anesthesia Discussed w Pt/Guardian: Yes Pt/Guardian Understands and Agrees with Anesthesia Plan: Yes PreAnesthesia Questionnaire - Past Health History Medical/Surgical History: Denies Medical/Surgical History HEENT History: Reports: None Cardiovascular History: Reports: None Respiratory History: Reports: None Gastrointestinal History: Reports: Helicobacter Pylori Other Gastrointestinal History: rectal polyp Genitourinary History: Reports: None 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: , Spontaneous Musculoskeletal History: Reports: Fracture Other Musculoskeletal History: hx fx big toe Neurological History: Reports: Headaches, Chronic, Other (See Below) Other Neuro History: hx of Occular migraines- not for many years Psychiatric History: Reports: Anxiety, Depression, Panic Attack Endocrine/Metabolic History: Reports: Obesity/BMI 30+ Other Endocrine/Metabolic History: vitamin b12 deficiency Hematologic History: Reports: B12 Deficiency Immunologic History: Reports: None Oncologic (Cancer) History: Reports: None Dermatologic History: Reports: Other (See Below) Other Dermatologic History: Perianal warts - Infectious Disease History Infectious Disease History: Reports: None - Past Surgical History Head Surgeries/Procedures: Reports: None HEENT Surgical History: Reports: Oral Surgery Other HEENT Surgeries/Procedures: wisdom teeth removed Cardiovascular Surgical History: Reports: None Respiratory Surgical History: Reports: None GI Surgical History: Reports: Cholecystectomy, Colonoscopy Female Surgical History: Reports: None Endocrine Surgical History: Reports: None Neurological Surgical History: Reports: None Musculoskeletal Surgical History: Reports: None Oncologic Surgical History: Reports: None Dermatological Surgical History: Reports: None - SUBSTANCE USE Tobacco Use Status *Q: Current Every Day Tobacco User Tobacco Use Within Last Twelve Months: Cigarettes Recreational Drug Use History: No - HOME MEDS Home Medications: Home Meds LORazepam 1 mg PO BEDTIME 08/15/18 [History] Temazepam [Restoril] 15 mg PO BEDTIME 08/15/18 [History] Multivitamin/Iron/Folic Acid [Centrum Adults Tablet] 1 tab PO DAILY 03/06/21 [History] Omeprazole 40 mg PO DAILY 03/06/21 [History] Sertraline HCl 100 mg PO BID 03/06/21 [History] buPROPion HCL [Bupropion Xl] 300 mg PO QAM 03/06/21 [History] hydrOXYzine HCL [Hydroxyzine HCl] 75 mg PO BEDTIME 03/06/21 [History] Cyanocobalamin (Vitamin B12) [Vitamin B12] 500 mcg PO DAILY 04/24/21 [History] - CURRENT (IN HOUSE) MEDS Current Meds: Current Medications Albuterol (Albuterol 0.083% 2.5 Mg/3 Ml Neb Soln) 2.5 mg NEB ONETIME PRN PRN Reason: Wheezing Droperidol (Droperidol 5 Mg/2 Ml Sdv) 0.625 mg IVPUSH ONETIME PRN PRN Reason: Nausea/Vomiting Fentanyl (Fentanyl 100 Mcg/2 Ml Sdv) 50 mcg IVPUSH Q5M PRN PRN Reason: Pain (mild 1-3) Hydromorphone HCl (Hydromorphone 1 Mg/Ml Syringe) 1 mg IVPUSH Q10M PRN PRN Reason: Pain (moderate 4-6) Lactated Ringer's (Ringers, Lactated) 1,000 mls @ 125 mls/hr IV ASDIRECTED BRIAN Metoclopramide HCl (Metoclopramide 10 Mg/2 Ml Sdv) 10 mg IVPUSH ONETIME PRN PRN Reason: Nausea/Vomiting Naloxone HCl (Naloxone 0.4 Mg/Ml Sdv) 0.1 mg IVPUSH ASDIRECTED PRN PRN Reason: Respiratory Depression Ondansetron HCl (Ondansetron 4 Mg/2 Ml Sdv) 4 mg IVPUSH ONETIME PRN PRN Reason: Nausea/Vomiting Sodium Chloride (Sodium Chloride 0.9% 2.5 Ml Syringe) 2.5 ml FLUSH ASDIRECTED PRN PRN Reason: Keep Vein Open Sodium Chloride (Sodium Chloride 0.9% 20 Ml Sdv) 10 ml IV ASDIRECTED PRN PRN Reason: IV Use Sodium Chloride (Sodium Chloride 0.9% 10 Ml Syringe) 10 ml FLUSH ASDIRECTED PRN PRN Reason: Keep Vein Open Discontinued Medications Cefoxitin Sodium 2 gm/ Premix 50 mls @ 100 mls/hr IV ONETIME ONE Stop: 04/29/21 14:24 Midazolam HCl (Midazolam 1 Mg/Ml 2 Ml Sdv) Confirm Administered Dose 2 mg .ROUTE .STK-MED ONE Stop: 04/30/21 12:12 Propofol (Propofol 200 Mg/20 Ml Sdv) Confirm Administered Dose 200 mg .ROUTE .STK-MED ONE Stop: 04/30/21 12:11
[2021-04-30] MEDS ORDERED: Bupivacaine 0.5% 10 ML SDV ONE (13:26)
[2021-04-30] MEDS ORDERED: Lidocaine 2% Jelly 30 ML Tube ONE (13:26)
[2021-04-30] MEDS ORDERED: Bupivacaine Liposome 1.3% 20 ML SDV ONE (13:29)
[2021-04-30] MEDS ORDERED: cefOXitin 1 GM Vial ONE (14:34)
[2021-04-30] MEDS ORDERED: fentaNYL 100 MCG/2 ML SDV ONE (14:34)
[2021-04-30] MEDS ORDERED: Ondansetron 4 MG/2 ML SDV ONE (14:49)
[2021-04-30] MEDS ORDERED: Ketorolac 30 MG/ML SDV ONE (14:49)
[2021-04-30] MEDS ORDERED: Dexamethasone 4 MG/ML 5 ML MDV ONE (14:49)
[2021-04-30] MEDS ORDERED: Dexmedetomidine 200 MCG/2 ML SDV ONE (14:49)
--- NOTE | 2021-04-30 15:07 | PCM.OPNOTE ---
- General Post-Op/Procedure Note Date of Surgery/Procedure: 04/30/21 Operative Procedure(s): Excision and fulguration perianal warts Findings: Perianal warts Pre Op Diagnosis: Perianal warts Post-Op Diagnosis: same Anesthesia Technique: General LMA Primary Surgeon: Nuvia Mendoza Fluid Replacement, Intraop: 1,000 EBL in mLs: 1 Condition: Good
--- NOTE | 2021-04-30 15:21 | PCM.POSTAN ---
POST ANESTHESIA ASSESSMENT - MENTAL STATUS Mental Status: Alert, Oriented - VITAL SIGNS Vital Signs: Last Vital Signs Temp 36.3 C 04/30/21 15:04 Pulse 65 04/30/21 15:14 Resp 16 04/30/21 15:14 BP 110/53 L 04/30/21 15:14 Pulse Ox 93 L 04/30/21 15:14 - RESPIRATORY Respiratory Status: Respiratory Rate WNL, Airway Patent, O2 Saturation Stable - CARDIOVASCULAR CV Status: Pulse Rate WNL, Blood Pressure Stable - GASTROINTESTINAL GI Status: No Symptoms - POST OP HYDRATION Hydration Status: Adequate & Stable
--- NOTE | 2021-04-30 15:27 | PCM48HPAN ---
Post Anesthesia Note - EVALUATION WITHIN 48HRS OF ANESTHETIC Vital Signs in Normal Range: Yes Patient Participated in Evaluation: Yes Respiratory Function Stable: Yes Airway Patent: Yes Cardiovascular Function Stable: Yes Hydration Status Stable: Yes Pain Control Satisfactory: Yes Nausea and Vomiting Control Satisfactory: Yes Mental Status Recovered: Yes Vital Signs: Last Vital Signs Temp 36.3 C 04/30/21 15:04 Pulse 65 04/30/21 15:25 Resp 18 04/30/21 15:25 BP 103/50 L 04/30/21 15:25 Pulse Ox 95 04/30/21 15:25
[2021-04-30 15:54] VITALS: BP 109/58; PULSE 64
--- NOTE | 2021-04-30 16:12 | OR ---
SURGEON: NUVIA MENDOZA MD DATE OF PROCEDURE: 04/30/2021 PREOPERATIVE DIAGNOSIS: Anal warts. POSTOPERATIVE DIAGNOSIS: Anal warts. PROCEDURE PERFORMED: Excision and fulguration, anal warts. PRIMARY SURGEON: Nuvia Mendoza MD ANESTHESIA: General LMA, local. FLUIDS: 1000 mL crystalloid. ESTIMATED BLOOD LOSS: 1 mL. FINDINGS: Multiple warts around the anoderm. Largest of these was a sessile wart measuring 8 mm in diameter. COMPLICATIONS: None. INDICATIONS: The patient is a 40-year-old female who was found on recent endoscopy to have multiple anal warts. I visited with the patient during her post colonoscopy visit. She states that she has failed imiquimod treatment. The burden of these warts makes it difficult to keep herself clean. The decision was made to proceed to the operating room to excise and fulgurize these under anesthesia. I explained the procedure, expected perioperative course, and the risks. She verbalized understanding and wishes to proceed. PROCEDURE IN DETAIL: The patient was brought in to the endoscopy suite and placed in a left lateral decubitus position. A time-out was completed verifying the patient's name, age, date of , allergies, and procedure to be performed. General LMA anesthesia was induced. The buttock was then prepped and draped in usual standard fashion. I anesthetized the anoderm circumferentially with Exparel. I then used needle- tip cautery to excise multiple small anal warts circumferentially around the anoderm. Several of these were small enough that I simply fulgurized them. There was one sessile wart that was located on the periphery of the anoderm on the right butt cheek. This measured 8 mm in size. It was flat and sessile and fulgurized using cautery on the cut mode. At the end of the case, the excised warts were placed in a jar and sent to Pathology for histologic review. I placed bacitracin around the anoderm and covered it with 4 x 4 fluffs and an ABD pad. This was secured in place using mesh underwear. The patient tolerated the procedure well, was extubated, and taken to PACU in stable condition. All counts were complete and correct at the end of the case. LEMEASH / MODL /[id number]
== END 2021-04-30 16:05 | disposition home or self-care (01) ==
LOC: MW.SDS 12:11
PROVIDERS: ATTEND Surgery
DX: A63.0 Anogenital (venereal) warts (principal); F41.9 Anxiety disorder, unspecified; F32.A Depression, unspecified; E78.1 Pure hyperglyceridemia; E53.8 Deficiency of other specified B group vitamins; F17.210 Nicotine dependence, cigarettes, uncomplicated; K21.9 Gastro-esophageal reflux disease without esophagitis; E66.01 Morbid (severe) obesity due to excess calories; Z98.890 Other specified postprocedural states; Z79.899 Other long term (current) drug therapy; Z68.41 Body mass index [BMI] 40.0-44.9, adult
CPT/HCPCS: 46924; 81025; J0131; J0694; J1100; J1885; J2250; J2405; J2704; J3010; J7120; 00902; J3490

== ENCOUNTER 2021-05-21 10:26 | Day surgery (SDC) | payer BC ==
[2021-05-21] MEDS ORDERED: Propofol 200 MG/20 ML SDV ONE (10:54)
[2021-05-21] MEDS ORDERED: Midazolam 1 MG/ML 2 ML SDV ONE (10:55)
[2021-05-21] MEDS ORDERED: fentaNYL 250 MCG/5 ML SDV ONE (10:55)
--- NOTE | 2021-05-21 11:13 | PCM.PREANE ---
Preanesthetic Assessment - Procedure Proposed Procedure: Escis or fulgaration of genital warts - Anesthesia/Transfusion/Family Hx Anesthesia History: Prior Anesthesia Without Reaction Family History of Anesthesia Reaction: No Transfusion History: No Prior Transfusion(s) - Review of Systems General: No Symptoms Pulmonary: No Symptoms (Smokes 1 PPD) Cardiovascular: No Symptoms Gastrointestinal: No Symptoms (GERD well controlled) Neurological: No Symptoms Other: Reports: None - Physical Assessment NPO Status Date: 05/20/21 NPO Status Time: 21:00 Vital Signs: Last Vital Signs Temp 97.5 F 05/21/21 10:46 Pulse 85 05/21/21 10:46 Resp 16 05/21/21 10:46 BP 114/64 05/21/21 10:46 Pulse Ox 95 05/21/21 10:46 Height: 5 ft 5 in Weight: 118.841 kg ASA Class: 3 Mental Status: Alert & Oriented x3 Airway Class: Mallampati = 3 Dentition: Reports: Normal Dentition Thyro-Mental Finger Breadths: 3 Mouth Opening Finger Breadths: 3 ROM/Head Extension: Full Lungs: Clear to Auscultation, Normal Respiratory Effort Cardiovascular: Regular Rate, Regular Rhythm - Lab Values: Laboratory Last Values WBC 7.74 K/uL (4.0-11.0) 05/20/21 09:42 RBC 5.17 M/uL (4.30-5.90) 05/20/21 09:42 Hgb 14.0 g/dL (12.0-16.0) 05/20/21 09:42 Hct 42.8 % (36.0-46.0) 05/20/21 09:42 MCV 82.8 fL (80.0-98.0) 05/20/21 09:42 MCH 27.1 pg (27.0-32.0) 05/20/21 09:42 MCHC 32.7 g/dL (31.0-37.0) 05/20/21 09:42 RDW Std Deviation 42.5 fl (28.0-62.0) 05/20/21 09:42 RDW Coeff of Luba 14 % (11.0-15.0) 05/20/21 09:42 Plt Count 246 K/uL (150-400) 05/20/21 09:42 MPV 9.70 fL (7.40-12.00) 05/20/21 09:42 Nucleated RBC % 0.0 /100WBC 05/20/21 09:42 Nucleated RBCs # 0 K/uL 05/20/21 09:42 Urine HCG, Qual NEGATIVE (NEGATIVE) 05/20/21 09:42 - Allergies Allergies/Adverse Reactions: Allergies Allergy/AdvReac Type Severity Reaction Status Date / Time No Known Allergies Allergy Verified 05/15/21 08:21 - Acknowledgements Anesthesia Type Planned: General Anesthesia Pt an Appropriate Candidate for the Planned Anesthesia: Yes Alternatives and Risks of Anesthesia Discussed w Pt/Guardian: Yes Pt/Guardian Understands and Agrees with Anesthesia Plan: Yes PreAnesthesia Questionnaire - Past Health History Medical/Surgical History: Denies Medical/Surgical History HEENT History: Reports: None Cardiovascular History: Reports: None Respiratory History: Reports: None Gastrointestinal History: Reports: Colon Polyp, GERD, Helicobacter Pylori Genitourinary History: Reports: None THREAD ROLLER History: Reports: , Spontaneous Musculoskeletal History: Reports: Fracture Other Musculoskeletal History: hx fx big toe Neurological History: Reports: None Psychiatric History: Reports: Anxiety, Depression, Panic Attack Endocrine/Metabolic History: Reports: Obesity/BMI 30+ Hematologic History: Reports: B12 Deficiency Immunologic History: Reports: None Oncologic (Cancer) History: Reports: None Dermatologic History: Reports: Other (See Below) Other Dermatologic History: Perianal warts - Infectious Disease History Infectious Disease History: Reports: None - Past Surgical History Head Surgeries/Procedures: Reports: None HEENT Surgical History: Reports: Oral Surgery Other HEENT Surgeries/Procedures: wisdom teeth removed Cardiovascular Surgical History: Reports: None Respiratory Surgical History: Reports: None GI Surgical History: Reports: Cholecystectomy, Colonoscopy, Other (See Below) Other GI Surgeries/Procedures: excision of perianal warts Female Surgical History: Reports: None Endocrine Surgical History: Reports: None Neurological Surgical History: Reports: None Musculoskeletal Surgical History: Reports: None Oncologic Surgical History: Reports: None Dermatological Surgical History: Reports: None - SUBSTANCE USE Tobacco Use Status *Q: Current Every Day Tobacco User Tobacco Use Within Last Twelve Months: Cigarettes - HOME MEDS Home Medications: Home Meds LORazepam 1 mg PO ASDIRECTED PRN 08/15/18 [History] Temazepam [Restoril] 30 mg PO BEDTIME 08/15/18 [History] Multivitamin/Iron/Folic Acid [Centrum Adults Tablet] 1 tab PO DAILY 03/06/21 [History] hydrOXYzine HCL [Hydroxyzine HCl] 100 mg PO BEDTIME 03/06/21 [History] Cyanocobalamin (Vitamin B12) [Vitamin B12] 500 mcg PO DAILY 04/24/21 [History] Desvenlafaxine [Desvenlafaxine ER] 50 mg PO DAILY 05/15/21 [History] Pantoprazole Sodium [Protonix] 20 mg PO DAILY 05/15/21 [History] - CURRENT (IN HOUSE) MEDS Current Meds: Current Medications Discontinued Medications Fentanyl (Fentanyl 250 Mcg/5 Ml Sdv) Confirm Administered Dose 250 mcg .ROUTE .STK-MED ONE Stop: 05/21/21 10:56 Lidocaine HCl (Lidocaine 1% 5 Ml Sdv) Confirm Administered Dose 5 ml .ROUTE .STK-MED ONE Stop: 05/21/21 10:56 Midazolam HCl (Midazolam 1 Mg/Ml 2 Ml Sdv) Confirm Administered Dose 2 mg .ROUTE .STK-MED ONE Stop: 05/21/21 10:56 Propofol (Propofol 200 Mg/20 Ml Sdv) Confirm Administered Dose 200 mg .ROUTE .STK-MED ONE Stop: 05/21/21 10:55
[2021-05-21] MEDS ORDERED: Esmolol 100 MG/10 ML SDV ONE (11:21)
[2021-05-21] MEDS ORDERED: Rocuronium Bromide 50 MG/5 ML Syringe ONE (11:21)
[2021-05-21] MEDS ORDERED: Lidocaine 1% with EPINEPHrine 1:100,000 20 ML MDV ONE (11:42)
[2021-05-21] MEDS ORDERED: ceFAZolin 1 GM Vial ONE (12:28)
[2021-05-21] MEDS ORDERED: Ondansetron 4 MG/2 ML SDV ONE (12:42)
[2021-05-21] MEDS ORDERED: Ketorolac 30 MG/ML SDV ONE (12:42)
[2021-05-21] MEDS ORDERED: ePHEDrine 50 MG/ML SDV ONE (12:44)
--- NOTE | 2021-05-21 13:07 | PCM.OPNOTE ---
- General Post-Op/Procedure Note Date of Surgery/Procedure: 05/21/21 Operative Procedure(s): Excision and fulguration of genital warts Findings: Multiple warts over vulva. Largest of these was a pedunculated wart measuring 8mm in length Pre Op Diagnosis: Urogenital warts Post-Op Diagnosis: Urogenital warts Anesthesia Technique: General ET Tube Primary Surgeon: Christina Meier Anesthesia Provider: Eloy Broussard Pathology: Genital warts Fluid Replacement, Intraop: 700 Output, Urine Amount: 5 EBL in mLs: 5 Complications: None known Condition: Good Free Text/Narrative:: Intake & Output 05/20/21 05/21/21 05/21/21 22:59 06:59 14:59 Output Total 5 Balance -5 Dictation #[id number]
--- NOTE | 2021-05-21 13:13 | PCM.POSTAN ---
POST ANESTHESIA ASSESSMENT - MENTAL STATUS Mental Status: Alert, Oriented - VITAL SIGNS Vital Signs: Last Vital Signs Temp 36.1 C 05/21/21 12:54 Pulse 71 05/21/21 12:59 Resp 18 05/21/21 12:59 BP 100/47 L 05/21/21 12:59 Pulse Ox 95 05/21/21 12:59 - RESPIRATORY Respiratory Status: Respiratory Rate WNL, Airway Patent, O2 Saturation Stable - CARDIOVASCULAR CV Status: Pulse Rate WNL, Blood Pressure Stable - GASTROINTESTINAL GI Status: No Symptoms - POST OP HYDRATION Hydration Status: Adequate & Stable
--- NOTE | 2021-05-21 13:17 | PCM48HPAN ---
Post Anesthesia Note - EVALUATION WITHIN 48HRS OF ANESTHETIC Vital Signs in Normal Range: Yes Patient Participated in Evaluation: Yes Respiratory Function Stable: Yes Airway Patent: Yes Cardiovascular Function Stable: Yes Hydration Status Stable: Yes Pain Control Satisfactory: Yes Nausea and Vomiting Control Satisfactory: Yes Mental Status Recovered: Yes Vital Signs: Last Vital Signs Temp 36.1 C 05/21/21 12:54 Pulse 75 05/21/21 13:14 Resp 19 05/21/21 13:14 BP 95/56 L 05/21/21 13:14 Pulse Ox 95 05/21/21 13:14
[2021-05-21 13:35] VITALS: BP 96/65; PULSE 76
--- NOTE | 2021-05-21 13:45 | OR ---
SURGEON: CHRISTINA MEIER MD DATE OF PROCEDURE: 05/21/2021 PREOPERATIVE DIAGNOSIS: Urogenital warts. POSTOPERATIVE DIAGNOSIS: Urogenital warts. PROCEDURE PERFORMED: Excision of fulguration of genital warts. PRIMARY SURGEON: Christina Meier MD. ANESTHESIA: General endotracheal. ANESTHESIOLOGIST: Eloy Broussard MD FLUID: 700 mL of crystalloid. ESTIMATED BLOOD LOSS: 5 mL. URINE OUTPUT: 5 mL, straight cath prior to the procedure. FINDINGS: Multiple warts over the vulva. Largest of these was a pedunculated wart measuring 8 mm in length. COMPLICATIONS: None known. INDICATIONS: The patient is a 40-year-old female who was found on recent endoscopy to have multiple urogenital warts per general surgeon. Approximately 4 weeks ago, she had anal warts fulgurated and excised. She presented to [facility] with desire for the remaining of her urogenital warts to be excised as well. The patient had previously failed imiquimod treatment and she reports difficulty maintaining perineal cleanliness with current lesions. Decision was made to proceed to the operating room to excise and fulgurize these lesions under anesthesia. PROCEDURE IN DETAIL: The patient was brought to the operating room and placed in the dorsal lithotomy position. After anesthesia was obtained, a time-out was performed and the bladder was drained. The perineal area was prepped and draped in the usual sterile fashion. 1% lidocaine with epinephrine was used to anesthetize the area circumferentially. Needle-tip cautery was then used to excise multiple small genital warts circumferentially around the vulva. Several of these warts were small enough to be treated with simple fulguration. At the end of the case, the excised warts were placed in a jar and sent to pathology for histologic review. I placed bacitracin over the vulva. The patient tolerated the procedure well, was extubated, taken to the PACU in stable condition. All counts were complete and correct at the end of the case. ANUEL / MODJoshua /[id number] PAULA
== END 2021-05-21 13:47 | disposition home or self-care (01) ==
LOC: MW.SDS 10:26
PROVIDERS: ATTEND Obstetrics & Gynecology
DX: A63.0 Anogenital (venereal) warts (principal); G43.909 Migraine, unspecified, not intractable, without status migrainosus; F17.210 Nicotine dependence, cigarettes, uncomplicated; Z90.49 Acquired absence of other specified parts of digestive tract; Z79.899 Other long term (current) drug therapy
CPT/HCPCS: 36415; 46924; 81025; 85027; J0330; J0690; J1885; J2250; J2405; J2704; J3010; J3490; 00940

== ENCOUNTER 2022-01-30 09:10 | Day surgery (SDC) | payer BC, OTHER ==
[2022-01-28 17:25] LABS: CARBON DIOXIDE,CO2 25.8 mmol/L (21.0-32.0); POTASSIUM,K 3.7 mmol/L (3.5-5.1)
[~2022-01-30 09:10] MED LIST changes: -Lactated Ringers 1,000 ML IV SCH; -Midazolam 1 MG/ML 2 ML SDV ONE; -Propofol 200 MG/20 ML SDV ONE; +ceFAZolin 2 GM in Premix Bag 1 BAG IV ONE; -cefOXitin 2 GM in Premix Bag 1 BAG IV ONE
[2022-01-30] MEDS: Lactated Ringers 1,000 ML IV SCH ×2 (09:50→13:51)
[2022-01-30] MEDS ORDERED: Dexamethasone 4 MG/ML 5 ML MDV ONE (09:56)
[2022-01-30] MEDS ORDERED: fentaNYL 250 MCG/5 ML SDV ONE (09:56)
[2022-01-30] MEDS ORDERED: Ondansetron 4 MG/2 ML SDV ONE (09:56)
[2022-01-30] MEDS ORDERED: Rocuronium Bromide 50 MG/5 ML Syringe ONE ×2 (09:56→11:54)
[2022-01-30] MEDS ORDERED: Propofol 200 MG/20 ML SDV ONE (09:56)
[2022-01-30] MEDS ORDERED: Sugammadex Sodium 200 MG/2 ML VIAL ONE (09:56)
[2022-01-30] MEDS ORDERED: Lidocaine 2% 5 ML SDV ONE (09:56)
[2022-01-30] MEDS ORDERED: Midazolam 1 MG/ML 2 ML SDV ONE (09:56)
[2022-01-30] MEDS ORDERED: fentaNYL 50 MCG/ML SDV IVPUSH PRN (10:02)
[2022-01-30] MEDS ORDERED: Albuterol 0.083% 2.5 MG/3 ML Neb Soln NEB PRN (10:02)
[2022-01-30] MEDS ORDERED: Naloxone 0.4 MG/ML SDV IVPUSH PRN (10:02)
[2022-01-30] MEDS ORDERED: HYDROmorphone 1 MG/ML Syringe IVPUSH PRN (10:02)
[2022-01-30] MEDS ORDERED: Metoclopramide 10 MG/2 ML SDV IVPUSH PRN (10:02)
[2022-01-30] MEDS ORDERED: Ondansetron 4 MG/2 ML SDV IVPUSH PRN ×2 (10:02→12:21)
[2022-01-30] MEDS ORDERED: ceFAZolin/Dextrose,Iso-Osmotic 2 GM/50 ML Duplex Bag (Premix) ONE (10:09)
[2022-01-30] MEDS ORDERED: Fluorescein 5 ML Vial ONE ×2 (10:20→10:25)
[2022-01-30] MEDS ORDERED: Famotidine 20 MG/2 ML SDV ONE (10:25)
[2022-01-30] MEDS ORDERED: HYDROmorphone 2 MG/ML Syringe ONE (11:51)
[2022-01-30] MEDS ORDERED: Promethazine 25 MG/ML SDV IM PRN (12:21)
[2022-01-30] MEDS ORDERED: Morphine 4 MG/ML VIAL IVPUSH PRN (12:21)
[2022-01-30] MEDS ORDERED: Ketorolac 30 MG/ML SDV IVPUSH ONE (12:21)
[2022-01-30] MEDS ORDERED: Acetaminophen/oxyCODONE 325-5 MG Tab PO PRN (12:21)
[2022-01-30] MEDS ORDERED: Dexmedetomidine 200 MCG/2 ML SDV ONE (12:36)
[2022-01-30] MEDS ORDERED: Ketorolac 30 MG/ML SDV IVPUSH PRN (13:00)
[2022-01-30] MEDS ORDERED: Nicotine 21 MG/24 Hr Patch TRDERM SCH (15:15)
[2022-01-30] MEDS: Acetaminophen/oxyCODONE 325-5 MG Tab PO PRN (19:46)
[2022-01-31] MEDS ORDERED: Aluminum Hydroxide/Magnesium Hydroxide/Simethicone XS Susp 30 ML Cup PO ONE (03:41)
[2022-01-31 05:45] LABS: CARBON DIOXIDE,CO2 28.7 mmol/L (21.0-32.0); POTASSIUM,K 4.1 mmol/L (3.5-5.1)
[2022-01-31] MEDS: Acetaminophen/oxyCODONE 325-5 MG Tab PO PRN (07:32)
[2022-01-31 08:53] VITALS: BP 121/68; PULSE 71
== END 2022-01-31 08:50 | disposition home or self-care (01) ==
LOC: MW.SDS 09:10 → MW.OB 14:01 → MW.SDS 01-31 08:50
PROVIDERS: ATTEND Obstetrics & Gynecology
DX: N72 Inflammatory disease of cervix uteri (principal); N83.8 Other noninflammatory disorders of ovary, fallopian tube and broad ligament; K21.9 Gastro-esophageal reflux disease without esophagitis; F41.9 Anxiety disorder, unspecified; F32.A Depression, unspecified; E66.9 Obesity, unspecified; E53.8 Deficiency of other specified B group vitamins; F17.210 Nicotine dependence, cigarettes, uncomplicated; Z79.899 Other long term (current) drug therapy
CPT/HCPCS: 36415; 58570; 80048; 84703; 85025; 85027; 86850; 86900; 86901; A9270; J0131; J0690; J1100; J1170; J1885; J2250; J2704; J3010; J3490; J7120; 00840; J2405; J7030

== ENCOUNTER 2022-10-29 13:18 | Emergency (ER) | payer BC, OTHER ==
[2022-10-29 14:19] VITALS: BP 124/71; PULSE 78
[2022-10-29] MEDS ORDERED: Ondansetron 4 MG/2 ML SDV IVPUSH ONE (14:59)
[2022-10-29] MEDS ORDERED: Sodium Chloride 0.9% 1,000 ML IV ONE (14:59)
[2022-10-29] MEDS ORDERED: Sodium Chloride 0.9% 10 ML Syringe FLUSH PRN (14:59)
[2022-10-29] MEDS ORDERED: Sodium Chloride 0.9% 2.5 ML Syringe FLUSH PRN (14:59)
[2022-10-29 16:03] LABS: BASOPHILS PERCENT AUTO 0.2 % (0.0-1.5); EOSINOPHILS ABSOLUTE AUTO 0.2 K/uL (0.0-0.7); EOSINOPHILS PERCENT AUTO 1.3 % (0.0-7.0); HEMATOCRIT 41.8 % (36.0-46.0); HEMOGLOBIN 13.8 g/dL (12.0-16.0); LYMPHOCYTES ABSOLUTE AUTO 1.3 K/uL (0.6-2.4); LYMPHOCYTES PERCENT AUTO 10.2 % (16.0-40.0); MEAN CORPUSCULAR HEMOGLOBIN 26.5 pg (27.0-32.0); MEAN CORPUSCULAR VOLUME 80.2 fL (80.0-98.0); MONOCYTES ABSOLUTE AUTO 0.8 K/uL (0.0-0.8); MONOCYTES PERCENT AUTO 6.3 % (0.0-15.0); NEUTROPHILS ABSOLUTE AUTO 10.4 K/uL (1.4-5.7); NRBC ABSOLUTE 0 K/uL; PLATELET COUNT,PLT 215 K/uL (150-400); RED BLOOD CELL COUNT 5.21 M/uL (4.30-5.90); WHITE BLOOD CELL COUNT,WBC 12.63 K/uL (4.0-11.0)
[2022-10-29 16:19] LABS: A/G RATIO 0.9 (0.9-1.6); ALBUMIN 3.5 g/dL (3.4-5.0); BILIRUBIN TOTAL 1.3 mg/dL (0.2-1.0); CALCIUM 8.6 mg/dL (8.5-10.1); CARBON DIOXIDE,CO2 25.2 mmol/L (21.0-32.0); CREATININE 1.1 mg/dL (0.6-1.0); EST CRCL DRUG DOSING (CG) 59.95 mL/min; POTASSIUM,K 4.1 mmol/L (3.5-5.1); PROTEIN TOTAL,TP 7.2 g/dL (6.4-8.2)
[2022-10-29 16:43] LABS: APPEARANCE,URINE CLEAR; BILIRUBIN,URINE NEGATIVE (NEGATIVE); COLOR,URINE YELLOW; GLUCOSE,URINE NEGATIVE (NEGATIVE); KETONES,URINE NEGATIVE (NEGATIVE); LEUKOCYTE ESTERASE,URINE NEGATIVE (NEGATIVE); NITRITE,URINE NEGATIVE (NEGATIVE); OCCULT BLOOD,URINE NEGATIVE (NEGATIVE); PROTEIN,URINE NEGATIVE (NEGATIVE)
== END 2022-10-29 17:20 | disposition home or self-care (01) ==
LOC: MW.ED 13:18
DX: B34.9 Viral infection, unspecified (principal); E86.0 Dehydration; E66.9 Obesity, unspecified; Z68.41 Body mass index [BMI] 40.0-44.9, adult
CPT/HCPCS: 36415; 80053; 81003; 83690; 83735; 85025; 96361; 96374; 99284; J2405; J3490; J7030